=== PATIENT | male | born 1955 ===

== ENCOUNTER 2018-07-24 18:40 | Inpatient (IN) | payer MEDICAID ==
[2018-07-24] MEDS ORDERED: Dextrose 50% SYRINGE Inj (50 ml) IVP ONE (19:10)
[2018-07-24] MEDS ORDERED: Dextrose 50% SYRINGE Inj (50 ml) ONE (19:11)
[2018-07-24 19:54] LABS: BASO # 0.1 K/uL (0.0-0.2); BASO % 0.5 % (0.0-2.0); EOS % 0.1 % (0.0-4.0); HEMOGLOBIN 14.5 g/dL (12.0-18.0); LYMPH # 1.4 K/uL (1.0-4.3); LYMPH % 11.7 % (20.0-40.0); MEAN CELL VOLUME 93.9 fl (80.0-94.0); MEAN CORPUSCULAR HEMOGLOBIN 31.4 pg (27.0-31.0); MEAN CORPUSCULAR HGB CONC 33.5 g/dL (33.0-37.0); MEAN PLATELET VOLUME 9.1 fl (7.2-11.7); MONO # 0.8 K/uL (0.0-0.8); MONO % 6.7 % (0.0-10.0); NRBC % 0.1 % (0.0-0.0); RBC 4.62 Mil/uL (4.40-5.90); RED CELL DISTRIBUTION WIDTH 13.8 % (11.5-14.5); WHITE BLOOD COUNT 12.4 K/uL (4.8-10.8)
--- NOTE | 2018-07-24 19:57 | ED PDOC ---
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 On evaluation, patient with an accucheck of 38 and immediately started on d-50. Patient is easily arousable and denies any drinking or drugs today, but states last night he drank a lot of vodka. When told he still smells like alcohol and asked if he is certain he did not drink today, patient just shrugs his shoulders. When asked why he was at the laundry mat, he said "I don't know." Otherwise, he denies chest pain, headache, dizziness, numbness, and weakness. Patient is a poor historian due to his clinical condition. PMD: none provided Past Medical History Reviewed: Historical Data, Nursing Documentation, Vital Signs Vital Signs: Last Vital Signs Temp 98.1 F 07/24/18 18:45 Pulse 100 H 07/24/18 18:45 Resp 19 07/24/18 18:45 BP 134/84 07/24/18 18:45 Pulse Ox 100 07/24/18 18:45 - Medical History PMH: Arthritis, Back Problems, Gastritis, HTN, Schizophrenia Denies: Chronic Kidney Disease - Surgical History Surgical History: Back Surgery - Family History Family History: States: Unknown Family Hx - Social History Current smoker - smoking cessation education provided: Yes Alcohol: Other (frequency not indicated) Drugs: Denies - Allergies Allergies/Adverse Reactions: Allergies Allergy/AdvReac Type Severity Reaction Status Date / Time Penicillins Allergy RASH Verified 08/27/16 19:29 Review of Systems ROS Statement: Except As Marked, All Systems Reviewed And Found Negative Cardiovascular: Negative for: Chest Pain Neurological: Positive for: Other (possible loss of consciousness). Negative for: Weakness, Numbness, Headache, Dizziness Physical Exam - Reviewed Nursing Documentation Reviewed: Yes Vital Signs Reviewed: Yes - Physical Exam Appears: Positive for: No Acute Distress Head Exam: Positive for: ATRAUMATIC, NORMAL INSPECTION, NORMOCEPHALIC Skin: Positive for: Normal Color. Negative for: Rash (or lacerations or abrasions) Eye Exam: Positive for: EOMI. Negative for: PERRL (right lateral pupillary defect: rigt pupil does not react to light; left pupil constricted with light) Neck: Positive for: Normal, Painless ROM, Supple Cardiovascular/Chest: Positive for: Tachycardia Respiratory: Positive for: Normal Breath Sounds. Negative for: Respiratory Distress Gastrointestinal/Abdominal: Positive for: Normal Exam, Soft. Negative for: Tenderness Extremity: Positive for: Normal ROM (all extremities), Other (clubbing of fingernails) Neurologic/Psych: Positive for: Other (easily arousable) - Laboratory Results Result Diagrams: 07/24/18 19:00 07/24/18 19:00 - ECG O2 Sat by Pulse Oximetry: 100 (RA) Pulse Ox Interpretation: Normal Medical Decision Making Medical Decision Making: Time: 1899 Initial Impression: workup for altered mental status most likely due to drugs and alcohol; hypoglycemia Initial Plan: --Will repeat blood sugar 30 mins after d-50 administration --VBG --EKG --Alcohol serum --CMP --Urine drug screen --Magnesium and phosphorus --Trop I --CBC with differential --Accucheck --Dextrose 5%/ Lactated Ringers 1000ml IV --Dextrose 50% Inj 50ml IVP --Reassess 2133 Code sepsis activated secondary to elevated WBC, elevated lactate, and tachycardia. In addition, CXR shows pneumonia. Scribe Attestation: Documented by Leslie Tobin, acting as a scribe for Ara Alonzo MD. Provider Scribe Attestation: All medical record entries made by the Scribe were at my direction and personally dictated by me. I have reviewed the chart and agree that the record accurately reflects my personal performance of the history, physical exam, medical decision making, and the department course for this patient. I have also personally directed, reviewed, and agree with the discharge instructions and disposition. Disposition - Clinical Impression Clinical Impression: Alcohol abuse with intoxication, Pneumonia, Hypoglycemia - Disposition
[2018-07-24 20:02] LABS: BLOOD UREA NITROGEN 20 mg/dl (9-20); CALCIUM 8.8 mg/dL (8.4-10.2); GFR NON-AFRICAN AMERICAN 56
[2018-07-24 20:08] LABS: ALB/GLOB RATIO 1.1 (1.0-2.1); ALBUMIN 4.3 g/dL (3.5-5.0); ALT/SGPT 61 U/L (21-72); AST/SGOT 115 U/L (17-59)
[2018-07-24] MEDS: Dextrose 5%/Lactated Ringer's 1,000 ML IV SCH (20:24)
[2018-07-24 21:31] LABS: VENOUS BLOOD GAS BASE EXCESS -5.7 mmol/L (0.0-2.0); VENOUS BLOOD GAS PCO2 48 mmHg (40-60); VENOUS BLOOD GAS PO2 21 mm/Hg (30-55); VENOUS BLOOD PH 7.26 (7.32-7.43)
[2018-07-24] MEDS ORDERED: Sodium Chloride 0.9% 1,000 ML IV STA ×2 (21:34→21:36)
[2018-07-24] MEDS ORDERED: Azithromycin 500 MG in Sodium Chloride 0.9% 250 ML IVPB STA (21:34)
[2018-07-24] MEDS ORDERED: cefTRIAXone 1,000 MG in PED IV SYRINGE 1 SYR IVPB STA (21:35)
[2018-07-24] MEDS ORDERED: Azithromycin 500 MG IV IVPB ONE (21:45)
[2018-07-24] MEDS ORDERED: cefTRIAXone (Rocephin) 1 gm Inj ONE (21:46)
[2018-07-24] MEDS ORDERED: Sodium Chloride 3% for Inhalation 4 ML VIAL.NEB IH PRN (22:43)
[2018-07-24] MEDS ORDERED: Albuterol-Ipratrop 3 mg / 0.5 (3 ml) UD INH PRN (22:55)
[2018-07-24] MEDS ORDERED: Thiamine 100 mg/ml Inj IM ONE (22:55)
--- NOTE | 2018-07-24 23:23 | CP.PCM.HP ---
History of Present Illness - History of Present Illness History of Present Illness: 63 y/o male w/ pmhx of HTN and alcohol abuse who was brought in to [facility] ER by EMS after being found unconscious. Patient admits to alcohol consumption for the past two days; he is unsure how much he drank. He denies chest pain, nausea, vomiting, dizziness, pain. He reports heavy drinking once a month for years. PMD: Dr. Don Sosa Pmhx: HTN, right eye glaucoma FamHx: Mother has asthma; father has prostate cancer Social hx: etoh abuse for years, 1 ppd smoker x 48 years, marijuana once a month Surghx: Lumbar spine surgery and eye surgery Allergies: Penicillin Code Status: full code Next of Kin: Otf Rojas, friend/roommate; [phone] Present on Admission - Present on Admission Any Indicators Present on Admission: No History of DVT/PE: No History of Uncontrolled Diabetes: No Urinary Catheter: No Decubitus Ulcer Present: No Review of Systems - Review of Systems Systems not reviewed;Unavailable: Intoxicated - EENT Ears: absent: Dizziness - Cardiovascular Cardiovascular: absent: Chest Pain - Respiratory Respiratory: Cough. absent: Hemoptysis - Gastrointestinal Gastrointestinal: absent: Abdominal Pain, Constipation, Diarrhea, Nausea, Vomiting - Genitourinary Genitourinary: absent: Dysuria - Neurological Neurological: absent: Tremor Past Patient History - Infectious Disease Hx of Infectious Diseases: None - Past Medical History & Family History Past Medical History?: Yes Past Family History: Reviewed and not pertinent - Past Social History Smoking Status: Heavy Smoker > 10 Cigarettes Daily Alcohol: Other (frequency not indicated) Drugs: Denies, Cannabis Home Situation {Lives}: Friends - CARDIAC Hx Hypertension: Yes - PULMONARY Hx Respiratory Disorders: No - NEUROLOGICAL Hx Neurological Disorder: No - HEENT Hx Glaucoma: Yes - RENAL Hx Chronic Kidney Disease: No - ENDOCRINE/METABOLIC Hx Endocrine Disorders: No - HEMATOLOGICAL/ONCOLOGICAL Hx Hepatitis A: Yes (treated) Hx Hepatitis B: Yes (treated) Hx Hepatitis C: Yes - INTEGUMENTARY Hx Dermatological Problems: No - MUSCULOSKELETAL/RHEUMATOLOGICAL Hx Arthritis: Yes - GASTROINTESTINAL Hx Gastritis: Yes - GENITOURINARY/GYNECOLOGICAL Hx Genitourinary Disorders: No - PSYCHIATRIC Hx Schizophrenia: Yes - SURGICAL HISTORY Other/Comment: spine surgery 4 years ago - ANESTHESIA Hx Anesthesia: Yes Meds Allergies/Adverse Reactions: Allergies Allergy/AdvReac Type Severity Reaction Status Date / Time Penicillins Allergy RASH Verified 08/27/16 19:29 Physical Exam - Constitutional Appears: Non-toxic - Head Exam Head Exam: ATRAUMATIC - Eye Exam Eye Exam: absent: Nystagmus, Scleral icterus Pupil Exam: absent: Miosis - ENT Exam ENT Exam: Mucous Membranes Moist - Respiratory Exam Respiratory Exam: Clear to Auscultation Bilateral, NORMAL BREATHING PATTERN - Cardiovascular Exam Cardiovascular Exam: REGULAR RHYTHM, +S1, +S2 - GI/Abdominal Exam GI & Abdominal Exam: Normal Bowel Sounds, Soft. absent: Tenderness - Extremities Exam Extremities exam: Negative for: calf tenderness, pedal edema - Back Exam Back exam: absent: tenderness - Neurological Exam Neurological exam: Alert, Oriented x3 - Skin Skin Exam: Dry, Intact, Warm Results - Vital Signs Recent Vital Signs: Last Vital Signs Temp 98.3 F 07/24/18 22:59 Pulse 99 H 07/24/18 22:59 Resp 19 07/24/18 22:59 BP 130/79 07/24/18 22:59 Pulse Ox 96 07/24/18 22:59 - Labs Result Diagrams: 07/24/18 19:00 07/24/18 19:00 Labs: Laboratory Results - last 24 hr 07/24/18 07/24/18 07/24/18 19:00 19:00 19:08 WBC 12.4 H D RBC 4.62 Hgb 14.5 Hct 43.4 MCV 93.9 D MCH 31.4 H MCHC 33.5 RDW 13.8 Plt Count 209 MPV 9.1 Neut % (Auto) 81.0 H Lymph % (Auto) 11.7 L Patrick % (Auto) 6.7 Eos % (Auto) 0.1 Baso % (Auto) 0.5 Neut # (Auto) 10.0 H Lymph # (Auto) 1.4 Patrick # (Auto) 0.8 Eos # (Auto) 0.0 Baso # (Auto) 0.1 pO2 VBG pH VBG pCO2 VBG HCO3 VBG Total CO2 VBG O2 Sat (Calc) VBG Base Excess VBG Potassium Glucose Lactate FiO2 Blood Gas Comments Crit Value Called To Crit Value Called By Crit Value Read Back Blood Gas Notified Time Sodium 142 Potassium 4.2 Chloride 106 Carbon Dioxide 19 L Anion Gap 21 H BUN 20 Creatinine 1.3 Est GFR ( Amer) > 60 Est GFR (Non-Af Amer) 56 POC Glucose (mg/dL) 37 L* Random Glucose 41 L Calcium 8.8 Phosphorus 4.7 H Magnesium 1.9 Total Bilirubin 0.8 AST 115 H ALT 61 Alkaline Phosphatase 58 Troponin I < 0.0120 Total Protein 8.0 Albumin 4.3 Globulin 3.7 Albumin/Globulin Ratio 1.1 Venous Blood Potassium Alcohol, Quantitative 183 H 07/24/18 07/24/18 19:09 21:25 WBC RBC Hgb Hct MCV MCH MCHC RDW Plt Count MPV Neut % (Auto) Lymph % (Auto) Patrick % (Auto) Eos % (Auto) Baso % (Auto) Neut # (Auto) Lymph # (Auto) Patrick # (Auto) Eos # (Auto) Baso # (Auto) pO2 21 L VBG pH 7.26 L VBG pCO2 48 VBG HCO3 18.5 VBG Total CO2 23.0 VBG O2 Sat (Calc) 41.7 VBG Base Excess -5.7 L VBG Potassium 3.5 L Glucose 240 H Lactate 7.9 H* FiO2 21.0 Blood Gas Comments Lac=7.9 Crit Value Called To dana Alonzo Crit Value Called By 22 Crit Value Read Back Y Blood Gas Notified Time 2130 Sodium 139.0 Potassium Chloride 100.0 Carbon Dioxide Anion Gap BUN Creatinine Est GFR ( Amer) Est GFR (Non-Af Amer) POC Glucose (mg/dL) 34 L* Random Glucose Calcium Phosphorus Magnesium Total Bilirubin AST ALT Alkaline Phosphatase Troponin I Total Protein Albumin Globulin Albumin/Globulin Ratio Venous Blood Potassium 3.5 L Alcohol, Quantitative Assessment & Plan - Assessment and Plan (Free Text) Assessment: 63 y/o male w/ pmhx of HTN and alcohol abuse who is admitted for sepsis, pneumonia, and hypoglycemia management. Sepsis Admit to telemetry WBC 12.4, Lactate 7.9, HR 100 on admission. Afebrile. Likely secondary to pneumonia Cont. IV fluid hydration with D5/LR 125mL/hr Ceftriaxone 1gm IV QD and Azithromycin 500mg IV QD Blood culture pending Follow repeat lactic acid level in AM Pneumonia Community acquired vs. aspiration CXR official report pending Ceftriaxone 1gm IV QD and Azithromycin 500mg IV QD Duoneb 3 mL Q6H PRN, O2 NC 2L PRN Follow legionella urine ag, mycoplasma igg/igm, influenza A/B Sputum culture ordered High Anion Gap Metabolic Acidosis Likely secondary to lactic acidosis (7.9) secondary to sepsis Anion gap 21 on admission, Bicarb 19 Cont. IV fluid hydration and abx as above Hypoglycemia Blood glucose = 34 on admission S/p Dextrose 50 mL IVP once in ER Cont. IV fluid hydration with D5/LR 125mL/hr Will monitor glucose levels Q4H Alcohol Abuse Acute on Chronic Alcohol level 183 07/24/2018 AST> ALT, 115/61 CIWA protocol Ativan 1 gm IV Q6 PRN for agitation Neurocheck Q8H B12, Folate, Thiamine daily Hx of HTN Stable, controlled Will monitor BP Diet: Regular DVT prophylaxis: Lovenox 40mg SC QD Code Status: Full Code
[2018-07-24] MEDS ORDERED: Thiamine 100 mg/ml Inj ONE (23:35)
[2018-07-24 23:51] LABS: BARBITURATES, UR NEGATIVE (NEGATIVE); BENZODIAZEPINES, UR NEGATIVE (NEGATIVE); OPIATES, UR NEGATIVE (NEGATIVE); PHENCYCLIDINE, UR NEGATIVE (NEGATIVE)
[2018-07-25] MEDS: Dextrose 5%/Lactated Ringer's 1,000 ML IV SCH ×3 (00:10→15:38)
[2018-07-25 05:22] LABS: BASO # 0.1 K/uL (0.0-0.2); BASO % 0.8 % (0.0-2.0); EOS % 0.6 % (0.0-4.0); HEMOGLOBIN 13.3 g/dL (12.0-18.0); LYMPH # 1.9 K/uL (1.0-4.3); LYMPH % 22.2 % (20.0-40.0); MEAN CELL VOLUME 92.1 fl (80.0-94.0); MEAN CORPUSCULAR HEMOGLOBIN 31.4 pg (27.0-31.0); MEAN CORPUSCULAR HGB CONC 34.1 g/dL (33.0-37.0); MEAN PLATELET VOLUME 8.4 fl (7.2-11.7); MONO # 1.1 K/uL (0.0-0.8); MONO % 12.5 % (0.0-10.0); NEUT # 5.5 K/uL (1.8-7.0); NEUT % 63.9 % (50.0-75.0); NRBC % 0.1 % (0.0-0.0); RBC 4.23 Mil/uL (4.40-5.90); RED CELL DISTRIBUTION WIDTH 13.6 % (11.5-14.5); WHITE BLOOD COUNT 8.5 K/uL (4.8-10.8)
[2018-07-25 05:31] LABS: PROTHROMBIN TIME 11.1 Seconds (9.8-13.1)
[2018-07-25 05:34] LABS: PARTIAL THROMBOPLASTIN TIME 28.5 Seconds (25.6-37.1)
[2018-07-25 05:46] LABS: ALBUMIN 3.3 g/dL (3.5-5.0); ALT/SGPT 61 U/L (21-72); AST/SGOT 94 U/L (17-59); BLOOD UREA NITROGEN 21 mg/dl (9-20); CALCIUM 8.2 mg/dL (8.4-10.2); GFR NON-AFRICAN AMERICAN > 60
[2018-07-25] MEDS ORDERED: Dextrose 50% SYRINGE Inj (50 ml) IVP ONE (08:00)
[2018-07-25] MEDS: Azithromycin 500 MG in Sodium Chloride 0.9% 250 ML IVPB SCH (09:22)
--- NOTE | 2018-07-25 10:14 | CARD ---
APPROVED REPORT Date of service: 07/24/2018 EKG Measurement Heart [id number] <Conclusion> Normal sinus rhythm Possible Left atrial enlargement Nonspecific ST abnormality Prolonged QT Abnormal ECG
--- NOTE | 2018-07-25 11:05 | RAD ---
Date of service: 07/24/2018 HISTORY: possible admission COMPARISON: 08/27/2016. FINDINGS: LUNGS: No active pulmonary disease. PLEURA: No significant pleural effusion identified, no pneumothorax apparent. CARDIOVASCULAR: No atherosclerotic calcification present Normal. OSSEOUS STRUCTURES: No significant abnormalities. VISUALIZED UPPER ABDOMEN: Normal. OTHER FINDINGS: None. IMPRESSION: No active disease.
--- NOTE | 2018-07-25 12:33 | CP.PCM.PN ---
<Liam Montenegro - Last Filed: 07/25/18 12:44> Subjective - Date & Time of Evaluation Date of Evaluation: 07/25/18 Time of Evaluation: 09:30 - Subjective Subjective: Patient seen and evaluated at bedside in AM. Patient awake, alert but appears weak. He reports feeling better from yesterday. Cough present with light yellowish sputum. Patient also reports generalized pain w/o nausea, vomiting, diarrhea. Afebrile, tolerated diet well this morning. Denies any headache, chest pain, shortness of breath, vision changes. Objective - Vital Signs/Intake and Output Vital Signs (last 24 hours): Temp Pulse Resp BP Pulse Ox 98.1 F 87 20 129/73 96 07/25/18 12:07 07/25/18 12:07 07/25/18 12:07 07/25/18 12:07 07/25/18 12:07 - Medications Medications: Current Medications Albuterol/Ipratropium (Duoneb 3 Mg/0.5 Mg (3 Ml) Ud) 3 ml INH RQ6 PRN PRN Reason: Shortness of Breath Cyanocobalamin (Vitamin B12 1000 Mcg Tab) 1,000 mcg PO DAILY [facility] Enoxaparin Sodium (Lovenox) 40 mg SC DAILY [facility]; Protocol Folic Acid (Folic Acid) 1 mg PO DAILY [facility] Dextrose/Lactated Ringer's (Dextrose 5%/Lactated Ringer's) 1,000 mls @ 500 mls/hr IV .Q2H [facility] Stop: 07/25/18 19:19 Last Admin: 07/24/18 20:24 Dose: 500 mls/hr Dextrose/Lactated Ringer's (Dextrose 5%/Lactated Ringer's) 1,000 mls @ 125 mls/hr IV .Q8H [facility] Stop: 07/25/18 22:59 Last Admin: 07/25/18 09:24 Dose: 125 mls/hr Azithromycin 500 mg/ Sodium (Chloride) 250 mls @ 250 mls/hr IVPB DAILY [facility]; Protocol Last Admin: 07/25/18 09:22 Dose: 250 mls/hr Ceftriaxone Sodium 1 gm/ (Sodium Chloride) 100 mls @ 100 mls/hr IVPB DAILY [facility]; Protocol Last Admin: 07/25/18 09:22 Dose: 100 mls/hr Lorazepam (Ativan) 1 mg IM Q6 PRN PRN Reason: Agitation Multivitamins/Minerals (Therapeutic-M Tab) 1 tab PO DAILY [facility] Thiamine HCl (Vitamin B1 Tab) 100 mg PO DAILY [facility] - Labs Labs: 07/25/18 05:17 07/25/18 05:17 PT 11.1 Seconds (9.8-13.1) 07/25/18 05:17 INR 1.0 07/25/18 05:17 APTT 28.5 Seconds (25.6-37.1) 07/25/18 05:17 - Constitutional Appears: No Acute Distress - Head Exam Head Exam: ATRAUMATIC, NORMOCEPHALIC - ENT Exam ENT Exam: Mucous Membranes Moist - Neck Exam Neck Exam: Full ROM. absent: Tenderness - Respiratory Exam Respiratory Exam: Clear to Ausculation Bilateral, Rhonchi. absent: Decreased Breath Sounds, Rales, Wheezes, Respiratory Distress - Cardiovascular Exam Cardiovascular Exam: REGULAR RHYTHM, +S1, +S2. absent: Murmur - GI/Abdominal Exam GI & Abdominal Exam: Soft, Tenderness, Normal Bowel Sounds. absent: Distended - Extremities Exam Extremities Exam: absent: Calf Tenderness, Pedal Edema, Tenderness - Back Exam Back Exam: absent: CVA tenderness (L), CVA tenderness (R) - Neurological Exam Neurological Exam: Alert, Awake, Oriented x3 - Psychiatric Exam Psychiatric exam: Normal Affect, Normal Mood - Skin Skin Exam: Dry, Intact, Normal Color, Warm Assessment and Plan - Assessment and Plan (Free Text) Assessment: 63 y/o male w/ pmhx of HTN and alcohol abuse who is admitted for sepsis, pneumonia, and hypoglycemia management. Plan: Sepsis -Likely secondary to pneumonia -WBC 12.4, Lactate 7.9, HR 100 on admission. Currently Afebrile. -Cont. IV fluid hydration with D5/LR 125mL/hr -Ceftriaxone 1gm IV QD and Azithromycin 500mg IV QD -F/U Blood culture Pneumonia -Community acquired vs. aspiration, Neg Legionella -CXR: No acute infiltrates -C/W Ceftriaxone 1gm IV QD and Azithromycin 500mg IV QD -Duoneb 3 mL Q6H PRN, O2 NC 2L PRN -Follow mycoplasma igg/igm, influenza A/B, Sputum Cx High Anion Gap Metabolic Acidosis -Likely secondary to lactic acidosis (7.9) secondary to sepsis -Anion gap 21 on admission, Bicarb 19 -Cont. IV fluid hydration and abx as above Hypoglycemia -Blood glucose = 34 on admission -S/p Dextrose 50 mL IVP in ED -Cont. IV fluid hydration with D5/LR 125mL/hr -D50% 50 ml once today -Will monitor glucose levels Q4H Alcohol Abuse -Acute on Chronic -Alcohol level 183 07/24/2018 -AST> ALT, 115/61 -CIWA protocol -Ativan 1 gm IV Q6 PRN for agitation -Neurocheck Q8H -B12, Folate, Thiamine daily Hx of HTN -Stable, controlled -Will monitor BP Diet: -Regular DVT prophylaxis: -Lovenox 40mg SC QD Code Status: -Full Code <Radha Gonzales - Last Filed: 07/25/18 15:35> Objective - Vital Signs/Intake and Output Vital Signs (last 24 hours): Temp Pulse Resp BP Pulse Ox 98.1 F 87 20 129/73 96 07/25/18 12:07 07/25/18 12:07 07/25/18 12:07 07/25/18 12:07 07/25/18 12:07 - Medications Medications: Current Medications Albuterol/Ipratropium (Duoneb 3 Mg/0.5 Mg (3 Ml) Ud) 3 ml INH RQ6 PRN PRN Reason: Shortness of Breath Cyanocobalamin (Vitamin B12 1000 Mcg Tab) 1,000 mcg PO DAILY [facility] Last Admin: 07/25/18 15:28 Dose: 1,000 mcg Enoxaparin Sodium (Lovenox) 40 mg SC DAILY [facility]; Protocol Last Admin: 07/25/18 15:28 Dose: 40 mg Folic Acid (Folic Acid) 1 mg PO DAILY [facility] Last Admin: 07/25/18 15:27 Dose: 1 mg Dextrose/Lactated Ringer's (Dextrose 5%/Lactated Ringer's) 1,000 mls @ 500 mls/hr IV .Q2H [facility] Stop: 07/25/18 19:19 Last Admin: 07/24/18 20:24 Dose: 500 mls/hr Dextrose/Lactated Ringer's (Dextrose 5%/Lactated Ringer's) 1,000 mls @ 125 mls/hr IV .Q8H [facility] Stop: 07/25/18 22:59 Last Admin: 07/25/18 09:24 Dose: 125 mls/hr Azithromycin 500 mg/ Sodium (Chloride) 250 mls @ 250 mls/hr IVPB DAILY [facility]; Protocol Last Admin: 07/25/18 09:22 Dose: 250 mls/hr Ceftriaxone Sodium 1 gm/ (Sodium Chloride) 100 mls @ 100 mls/hr IVPB DAILY [facility]; Protocol Last Admin: 07/25/18 09:22 Dose: 100 mls/hr Lorazepam (Ativan) 1 mg IM Q6 PRN PRN Reason: Agitation Multivitamins/Minerals (Therapeutic-M Tab) 1 tab PO DAILY [facility] Thiamine HCl (Vitamin B1 Tab) 100 mg PO DAILY [facility] Last Admin: 07/25/18 15:27 Dose: 100 mg - Labs Labs: 07/25/18 05:17 07/25/18 05:17 PT 11.1 Seconds (9.8-13.1) 07/25/18 05:17 INR 1.0 07/25/18 05:17 APTT 28.5 Seconds (25.6-37.1) 07/25/18 05:17 Attending/Attestation - Attestation I have personally seen and examined this patient.: Yes I have fully participated in the care of the patient.: Yes I have reviewed all pertinent clinical information, including history, physical exam and plan: Yes
[2018-07-25] MEDS: Enoxaparin 40 mg Syringe SC SCH (15:28)
[2018-07-25] MEDS: Multivitamin With Minerals Tab PO SCH (17:39)
[2018-07-26] MEDS: Enoxaparin 40 mg Syringe SC SCH (09:00)
[2018-07-26] MEDS: Multivitamin With Minerals Tab PO SCH (09:00)
[2018-07-26] MEDS: Azithromycin 500 MG in Sodium Chloride 0.9% 250 ML IVPB SCH (09:01)
--- NOTE | 2018-07-26 12:03 | CP.PCM.PN ---
<Katie Mims - Last Filed: 07/26/18 12:30> Subjective - Date & Time of Evaluation Date of Evaluation: 07/26/18 Time of Evaluation: 12:03 - Subjective Subjective: 63-year-old male seen bedside sitting up in bed comfortably eating breakfast. Patient awake, alert and ambulating to the restroom without difficulties. Cough present but denies any sputum since yesterday. He reports improvement in overall symptoms but admits to feeling fatigued and two episodes of new-onset loose- stools, dark in color. Denies blood in stool, pain with bowel movement, nausea, vomiting, dizziness, palpitations, chest pain and change in vision. Objective - Vital Signs/Intake and Output Vital Signs (last 24 hours): Temp Pulse Resp BP Pulse Ox 97.9 F 72 18 127/79 97 07/26/18 12:03 07/26/18 12:03 07/26/18 12:03 07/26/18 12:03 07/26/18 12:03 - Medications Medications: Current Medications Albuterol/Ipratropium (Duoneb 3 Mg/0.5 Mg (3 Ml) Ud) 3 ml INH RQ6 PRN PRN Reason: Shortness of Breath Chlordiazepoxide (Librium) 10 mg PO Q6 [facility] Last Admin: 07/26/18 09:03 Dose: 10 mg Cyanocobalamin (Vitamin B12 1000 Mcg Tab) 1,000 mcg PO DAILY [facility] Last Admin: 07/26/18 09:00 Dose: 1,000 mcg Enoxaparin Sodium (Lovenox) 40 mg SC DAILY [facility]; Protocol Last Admin: 07/26/18 09:00 Dose: 40 mg Folic Acid (Folic Acid) 1 mg PO DAILY [facility] Last Admin: 07/26/18 09:00 Dose: 1 mg Azithromycin 500 mg/ Sodium (Chloride) 250 mls @ 250 mls/hr IVPB DAILY [facility]; Protocol Last Admin: 07/26/18 09:01 Dose: 250 mls/hr Ceftriaxone Sodium 1 gm/ (Sodium Chloride) 100 mls @ 100 mls/hr IVPB DAILY [facility]; Protocol Last Admin: 07/26/18 09:00 Dose: 100 mls/hr Lorazepam (Ativan) 1 mg IM Q6 PRN PRN Reason: Agitation Multivitamins/Minerals (Therapeutic-M Tab) 1 tab PO DAILY [facility] Last Admin: 07/26/18 09:00 Dose: 1 tab Thiamine HCl (Vitamin B1 Tab) 100 mg PO DAILY [facility] Last Admin: 07/26/18 09:00 Dose: 100 mg - Labs Labs: 07/25/18 05:17 07/25/18 05:17 PT 11.1 Seconds (9.8-13.1) 07/25/18 05:17 INR 1.0 07/25/18 05:17 APTT 28.5 Seconds (25.6-37.1) 07/25/18 05:17 - Constitutional Appears: Non-toxic, No Acute Distress - Head Exam Head Exam: NORMAL INSPECTION - Eye Exam Eye Exam: Normal appearance - ENT Exam ENT Exam: Mucous Membranes Moist - Respiratory Exam Respiratory Exam: Wheezes, NORMAL BREATHING PATTERN - Cardiovascular Exam Cardiovascular Exam: REGULAR RHYTHM, +S1, +S2 - GI/Abdominal Exam GI & Abdominal Exam: Soft, Normal Bowel Sounds. absent: Tenderness - Neurological Exam Neurological Exam: Alert, Awake, Normal Gait, Oriented x3 - Psychiatric Exam Psychiatric exam: Normal Affect, Normal Mood - Skin Skin Exam: Dry, Intact, Normal Color, Warm Assessment and Plan - Assessment and Plan (Free Text) Assessment: 63 y/o male w/ pmhx of HTN and alcohol abuse who is admitted for sepsis, pneumonia, and hypoglycemia management. Plan: Sepsis - Likely secondary to pneumonia - Currently Afebrile - WBC 8.5 (07/25) from 12.4 (07/24) - HR range overnight 67-93, 100 on admission - Lactate 7.9 on admission - Cont. IV fluid hydration with D5/LR 125mL/hr - Ceftriaxone 1gm IV QD and Azithromycin 500mg IV QD - Blood culture (07/24): no growth at 24 hrs Pneumonia - Community acquired vs. aspiration - CXR: No acute infiltrates - C/W Ceftriaxone 1gm IV QD and Azithromycin 500mg IV QD - Duoneb 3 mL Q6H PRN, O2 NC 2L PRN - Follow mycoplasma IgG/IgM, influenza A/B - Sputum Cx (07/24) pending - Legionella (07/24) negative High Anion Gap Metabolic Acidosis - Likely secondary to lactic acidosis (7.9) secondary to sepsis - Anion gap 21 on admission, Bicarb 19 - Cont. IV fluid hydration and abx as above Hypoglycemia - Blood glucose = 34 on admission - S/p Dextrose 50 mL IVP in ED - Cont. IV fluid hydration with D5/LR 125mL/hr - D50% 50 ml once today - Will monitor glucose levels Q4H (range overnight 85-164) Alcohol Abuse - Acute on Chronic - Alcohol level 183 07/24/2018 - AST> ALT, 94/61 (07/25) from 115/61 (07/24) - [facility] protocol - Ativan 1 gm IV Q6 PRN for agitation - Neurocheck Q8H - B12, Folate, Thiamine daily - [place] 10mg Q6H Hx of HTN - Stable on admission - Overnight BP range 154-162/90-104 - Likely secondary to alcohol withdrawal, [place] added - Will monitor BP Diet: - Regular DVT prophylaxis: - Lovenox 40mg SC QD Code Status: - Full Code <Radha Gonzales - Last Filed: 07/26/18 15:03> Objective - Vital Signs/Intake and Output Vital Signs (last 24 hours): Temp Pulse Resp BP Pulse Ox 97.9 F 72 18 127/79 97 07/26/18 12:03 07/26/18 12:03 07/26/18 12:03 07/26/18 12:03 07/26/18 12:03 - Medications Medications: Current Medications Albuterol/Ipratropium (Duoneb 3 Mg/0.5 Mg (3 Ml) Ud) 3 ml INH RQ6 PRN PRN Reason: Shortness of Breath Chlordiazepoxide (Librium) 10 mg PO Q6 [facility] Last Admin: 07/26/18 09:03 Dose: 10 mg Cyanocobalamin (Vitamin B12 1000 Mcg Tab) 1,000 mcg PO DAILY [facility] Last Admin: 07/26/18 09:00 Dose: 1,000 mcg Enoxaparin Sodium (Lovenox) 40 mg SC DAILY [facility]; Protocol Last Admin: 07/26/18 09:00 Dose: 40 mg Folic Acid (Folic Acid) 1 mg PO DAILY [facility] Last Admin: 07/26/18 09:00 Dose: 1 mg Azithromycin 500 mg/ Sodium (Chloride) 250 mls @ 250 mls/hr IVPB DAILY [facility]; Pro tocol Last Admin: 07/26/18 09:01 Dose: 250 mls/hr Ceftriaxone Sodium 1 gm/ (Sodium Chloride) 100 mls @ 100 mls/hr IVPB DAILY [facility]; Protocol Last Admin: 07/26/18 09:00 Dose: 100 mls/hr Lorazepam (Ativan) 1 mg IM Q6 PRN PRN Reason: Agitation Multivitamins/Minerals (Therapeutic-M Tab) 1 tab PO DAILY [facility] Last Admin: 07/26/18 09:00 Dose: 1 tab Thiamine HCl (Vitamin B1 Tab) 100 mg PO DAILY [facility] Last Admin: 07/26/18 09:00 Dose: 100 mg - Labs Labs: 07/25/18 05:17 07/25/18 05:17 PT 11.1 Seconds (9.8-13.1) 07/25/18 05:17 INR 1.0 07/25/18 05:17 APTT 28.5 Seconds (25.6-37.1) 07/25/18 05:17 Attending/Attestation - Attestation I have personally seen and examined this patient.: Yes I have fully participated in the care of the patient.: Yes I have reviewed all pertinent clinical information, including history, physical exam and plan: Yes Notes (Text): Hypoglycemia likely due to Alcohol, resolved - accucheck ETOH Withdrawal - diarrhea, BP elevated , sl tachy which improved with Librium ? Sepsis due to Pneumonia - lactic acidosis may be due to ETOH -rpt CXR - pt has some rhonchi and cough but no fever nor leukocytosis
--- NOTE | 2018-07-26 17:48 | RAD ---
Date of service: 07/26/2018 HISTORY: r/p Pneumonia COMPARISON: Comparison made with chest radiograph 07/24/2018. TECHNIQUE: Chest PA and lateral FINDINGS: LUNGS: Mild bibasilar atelectasis PLEURA: No significant pleural effusion identified. No pneumothorax apparent. CARDIOVASCULAR: Aorta slightly ectatic and uncoiled. No significant aortic atherosclerotic calcification present. Normal cardiac size. No pulmonary vascular congestion. OSSEOUS STRUCTURES: No significant abnormalities. VISUALIZED UPPER ABDOMEN: Normal. OTHER FINDINGS: None. IMPRESSION: Mild bibasilar atelectasis
[2018-07-27 06:00] LABS: BASO % 0.7 % (0.0-2.0); EOS # 0.1 K/uL (0.0-0.7); EOS % 3.7 % (0.0-4.0); HEMOGLOBIN 15.3 g/dL (12.0-18.0); LYMPH # 1.7 K/uL (1.0-4.3); LYMPH % 44.1 % (20.0-40.0); MEAN CELL VOLUME 91.9 fl (80.0-94.0); MEAN CORPUSCULAR HGB CONC 33.8 g/dL (33.0-37.0); MEAN PLATELET VOLUME 9.1 fl (7.2-11.7); MONO # 0.5 K/uL (0.0-0.8); MONO % 12.7 % (0.0-10.0); NEUT # 1.5 K/uL (1.8-7.0); NEUT % 38.8 % (50.0-75.0); NRBC % 0.2 % (0.0-0.0); RBC 4.94 Mil/uL (4.40-5.90); RED CELL DISTRIBUTION WIDTH 13.3 % (11.5-14.5); WHITE BLOOD COUNT 3.9 K/uL (4.8-10.8)
[2018-07-27 06:30] LABS: BLOOD UREA NITROGEN 15 mg/dl (9-20); CALCIUM 9.9 mg/dL (8.4-10.2); GFR NON-AFRICAN AMERICAN > 60
[2018-07-27 08:05] VITALS: BP 120/79; PULSE 68; RESP 18; TEMP 98.4; O2SAT 95
[2018-07-27] MEDS: Azithromycin 500 MG in Sodium Chloride 0.9% 250 ML IVPB SCH (09:14)
[2018-07-27] MEDS: Multivitamin With Minerals Tab PO SCH (09:16)
[2018-07-27] MEDS: Enoxaparin 40 mg Syringe SC SCH (09:17)
--- NOTE | 2018-07-27 10:15 | CP.PCM.DIS ---
<Katie Mims - Last Filed: 07/27/18 15:38> Provider - Provider Date of Admission: 07/24/18 22:00 Attending physician: Flip West MD Time Spent in preparation of Discharge (in minutes): 25 Diagnosis - Discharge Diagnosis (1) Alcohol abuse with intoxication Status: Acute (2) Lactic acid acidosis Status: Acute (3) Hypoglycemia Status: Acute Hospital Course - Lab Results Lab Results: Micro Results 07/24/18 21:50 Blood Blood Culture - Preliminary NO GROWTH AFTER 48 HOURS 07/24/18 15:26 Sputum Gram Stain - Final Most Recent Lab Values WBC 3.9 K/uL (4.8-10.8) L D 07/27/18 04:10 RBC 4.94 Mil/uL (4.40-5.90) 07/27/18 04:10 Hgb 15.3 g/dL (12.0-18.0) D 07/27/18 04:10 Hct 45.4 % (35.0-51.0) 07/27/18 04:10 MCV 91.9 fl (80.0-94.0) 07/27/18 04:10 MCH 31.0 pg (27.0-31.0) 07/27/18 04:10 MCHC 33.8 g/dL (33.0-37.0) 07/27/18 04:10 RDW 13.3 % (11.5-14.5) 07/27/18 04:10 Plt Count 160 K/uL (130-400) 07/27/18 04:10 MPV 9.1 fl (7.2-11.7) 07/27/18 04:10 Neut % (Auto) 38.8 % (50.0-75.0) L 07/27/18 04:10 Lymph % (Auto) 44.1 % (20.0-40.0) H 07/27/18 04:10 [place] % (Auto) 12.7 % (0.0-10.0) H 07/27/18 04:10 Eos % (Auto) 3.7 % (0.0-4.0) 07/27/18 04:10 Baso % (Auto) 0.7 % (0.0-2.0) 07/27/18 04:10 Neut # (Auto) 1.5 K/uL (1.8-7.0) L 07/27/18 04:10 Lymph # (Auto) 1.7 K/uL (1.0-4.3) 07/27/18 04:10 [place] # (Auto) 0.5 K/uL (0.0-0.8) 07/27/18 04:10 Eos # (Auto) 0.1 K/uL (0.0-0.7) 07/27/18 04:10 Baso # (Auto) 0.0 K/uL (0.0-0.2) 07/27/18 04:10 PT 11.1 Seconds (9.8-13.1) 07/25/18 05:17 INR 1.0 07/25/18 05:17 APTT 28.5 Seconds (25.6-37.1) 07/25/18 05:17 pO2 21 mm/Hg (30-55) L 07/24/18 21:25 VBG pH 7.26 (7.32-7.43) L 07/24/18 21:25 VBG pCO2 48 mmHg (40-60) 07/24/18 21:25 VBG HCO3 18.5 mmol/L 07/24/18 21:25 VBG Total CO2 23.0 mmol/L (22-28) 07/24/18 21:25 VBG O2 Sat (Calc) 41.7 % (40-65) 07/24/18 21:25 VBG Base Excess -5.7 mmol/L (0.0-2.0) L 07/24/18 21:25 VBG Potassium 3.5 mmol/L (3.6-5.2) L 07/24/18 21:25 Sodium 139.0 mmol/L (132-148) 07/24/18 21:25 Chloride 100.0 mmol/L (98-107) 07/24/18 21:25 Glucose 240 mg/dL (75-110) H 07/24/18 21:25 Lactate 7.9 mmol/L (0.7-2.1) H* 07/24/18 21:25 FiO2 21.0 % 07/24/18 21:25 Blood Gas Comments Lac=7.9 07/24/18 21:25 Crit Value Called To dana Alonzo 07/24/18 21:25 Crit Value Called By 22 07/24/18 21:25 Crit Value Read Back Y 07/24/18 21:25 Blood Gas Notified Time 213007/24/18 21:25 Sodium 138 mmol/l (132-148) 07/27/18 04:10 Potassium 4.0 MMOL/L (3.6-5.0) 07/27/18 04:10 Chloride 101 mmol/L (98-107) 07/27/18 04:10 Carbon Dioxide 28 mmol/L (22-30) 07/27/18 04:10 Anion Gap 13 (10-20) 07/27/18 04:10 BUN 15 mg/dl (9-20) 07/27/18 04:10 Creatinine 0.8 mg/dl (0.8-1.5) 07/27/18 04:10 Est GFR ( Amer) > 60 07/27/18 04:10 Est GFR (Non-Af Amer) > 60 07/27/18 04:10 POC Glucose (mg/dL) 122 mg/dL (65-110) H 07/27/18 06:39 Random Glucose 102 mg/dL (75-110) 07/27/18 04:10 Lactic Acid 0.8 MMOL/L (0.7-2.1) 07/25/18 05:17 Calcium 9.9 mg/dL (8.4-10.2) 07/27/18 04:10 Phosphorus 4.7 mg/dl (2.5-4.5) H 07/24/18 19:00 Magnesium 1.9 MG/DL (1.6-2.3) 07/24/18 19:00 Total Bilirubin 0.3 mg/dl (0.2-1.3) 07/25/18 05:17 AST 94 U/L (17-59) H 07/25/18 05:17 ALT 61 U/L (21-72) 07/25/18 05:17 Alkaline Phosphatase 41 U/L (38-126) 07/25/18 05:17 Troponin I < 0.0120 ng/mL (0.00-0.120) 07/24/18 19:00 Total Protein 6.5 G/DL (6.3-8.2) 07/25/18 05:17 Albumin 3.3 g/dL (3.5-5.0) L D 07/25/18 05:17 Globulin 3.2 gm/dL (2.2-3.9) 07/25/18 05:17 Albumin/Globulin Ratio 1.0 (1.0-2.1) 07/25/18 05:17 Venous Blood Potassium 3.5 mmol/L (3.6-5.2) L 07/24/18 21:25 Urine Opiates Screen Negative (NEGATIVE) 07/24/18 23:09 Urine Methadone Screen Negative (NEGATIVE) 07/24/18 23:09 Ur Barbiturates Screen Negative (NEGATIVE) 07/24/18 23:09 Ur Phencyclidine Scrn Negative (NEGATIVE) 07/24/18 23:09 Ur Amphetamines Screen Negative (NEGATIVE) 07/24/18 23:09 U Benzodiazepines Scrn Negative (NEGATIVE) 07/24/18 23:09 U Oth Cocaine Metabols Negative (NEGATIVE) 07/24/18 23:09 U Cannabinoids Screen Positive (NEGATIVE) H 07/24/18 23:09 Alcohol, Quantitative 183 mg/dl (0-10) H 07/24/18 19:00 Ur L.pneumophila Ag Negative (NEGATIVE) 07/24/18 23:55 - Hospital Course Hospital Course: 63 y/o male w/ pmhx of HTN and alcohol abuse who is admitted for sepsis, pneumonia, and hypoglycemia management. Sepsis secondary to pneumonia ruled out, discharge diagnosis acute alcohol intoxication and cough likely due to URI. CXR showed no acute infiltrates. Blood culture (07/24): no growth at 24 hrs. WBC 3.9 (07/27.), 8.5 (07/25), 12.4 (07/24). High anion gap metabolic acidosis likely due to lactic acidosis (7.9) secondary to alcohol intoxication. Cough likely secondary to URI, treated with Ceftriaxone 1gm IV QD and Azithromycin 500mg IV QD, Duoneb 3 mL Q6H PRN, O2 NC 2L PRN. Sputum Cx (07/24) gram neg konstantin, light growth, Legionella (07/24) negative. Hypoglycemia on admission (glucose 34) also likely due to alcohol intoxication, treated with Dextrose 50 mL IVP in ED, IV fluid hydration with D5/LR 125mL/hr, D50% 50 ml (x2: 07/24, 07/25). Glucose levels monitored Q4H (range overnight 71-122). On admission cannibinoids screen positive. Alcohol level 183 (07/24/2018). Alcohol abuse acute on chronic, AST> ALT, 94/61 (07/25); 115/61 (07/24). [facility] protocol followed, Ativan 1 gm IV Q6 PRN for agitation , neurocheck Q8H; B12, Folate, Thiamine daily. Librium 10mg Q6H added to resolve withdrawl HTN - discharged on librium taper dose. Smoking cessation counseling provided prior to discharge. Discharge Exam - Head Exam Head Exam: NORMAL INSPECTION - Eye Exam Eye Exam: Normal appearance - ENT Exam ENT Exam: Mucous Membranes Moist - Neck Exam Neck exam: Full Rom - Respiratory Exam Respiratory Exam: NORMAL BREATHING PATTERN, UNREMARKABLE. absent: Wheezes, Respiratory Distress - Cardiovascular Exam Cardiovascular Exam: REGULAR RHYTHM - GI/Abdominal Exam GI & Abdominal Exam: Soft, Unremarkable. absent: Tenderness - Extremities Exam Extremities exam: normal inspection - Neurological Exam Neurological exam: Alert, Normal Gait, Oriented x3 - Psychiatric Exam Psychiatric exam: Normal Affect, Normal Mood - Skin Skin Exam: Dry, Intact, Normal Color, Warm Discharge Plan - Discharge Medications Prescriptions: chlordiazePOXIDE [Librium] 10 mg PO ASDIR #10 cap - Follow Up Plan Condition: GOOD Disposition: HOME/ ROUTINE Instructions: Acute Bronchitis, Alcohol Withdrawal (DC), Alcohol Abuse and Alcoholism (DC) Additional Instructions: please follow up with on wednesday08/02/18 9:30am Referrals: Don Sosa [Family Provider] - <Radha Gonzales - Last Filed: 07/27/18 18:37> Provider - Provider Date of Admission: 07/24/18 22:00 Attending physician: Flip West MD Hospital Course - Lab Results Lab Results: Micro Results 07/24/18 15:26 Sputum Gram Stain - Final 07/24/18 15:26 Sputum Sputum Culture - Preliminary Gram Negative Konstantin 07/24/18 21:50 Blood Blood Culture - Preliminary NO GROWTH AFTER 48 HOURS Most Recent Lab Values WBC 3.9 K/uL (4.8-10.8) L D 07/27/18 04:10 RBC 4.94 Mil/uL (4.40-5.90) 07/27/18 04:10 Hgb 15.3 g/dL (12.0-18.0) D 07/27/18 04:10 Hct 45.4 % (35.0-51.0) 07/27/18 04:10 MCV 91.9 fl (80.0-94.0) 07/27/18 04:10 MCH 31.0 pg (27.0-31.0) 07/27/18 04:10 MCHC 33.8 g/dL (33.0-37.0) 07/27/18 04:10 RDW 13.3 % (11.5-14.5) 07/27/18 04:10 Plt Count 160 K/uL (130-400) 07/27/18 04:10 MPV 9.1 fl (7.2-11.7) 07/27/18 04:10 Neut % (Auto) 38.8 % (50.0-75.0) L 07/27/18 04:10 Lymph % (Auto) 44.1 % (20.0-40.0) H 07/27/18 04:10 [place] % (Auto) 12.7 % (0.0-10.0) H 07/27/18 04:10 Eos % (Auto) 3.7 % (0.0-4.0) 07/27/18 04:10 Baso % (Auto) 0.7 % (0.0-2.0) 07/27/18 04:10 Neut # (Auto) 1.5 K/uL (1.8-7.0) L 07/27/18 04:10 Lymph # (Auto) 1.7 K/uL (1.0-4.3) 07/27/18 04:10 [place] # (Auto) 0.5 K/uL (0.0-0.8) 07/27/18 04:10 Eos # (Auto) 0.1 K/uL (0.0-0.7) 07/27/18 04:10 Baso # (Auto) 0.0 K/uL (0.0-0.2) 07/27/18 04:10 PT 11.1 Seconds (9.8-13.1) 07/25/18 05:17 INR 1.0 07/25/18 05:17 APTT 28.5 Seconds (25.6-37.1) 07/25/18 05:17 pO2 21 mm/Hg (30-55) L 07/24/18 21:25 VBG pH 7.26 (7.32-7.43) L 07/24/18 21:25 VBG pCO2 48 mmHg (40-60) 07/24/18 21:25 VBG HCO3 18.5 mmol/L 07/24/18 21:25 VBG Total CO2 23.0 mmol/L (22-28) 07/24/18 21:25 VBG O2 Sat (Calc) 41.7 % (40-65) 07/24/18 21:25 VBG Base Excess -5.7 mmol/L (0.0-2.0) L 07/24/18 21:25 VBG Potassium 3.5 mmol/L (3.6-5.2) L 07/24/18 21:25 Sodium 139.0 mmol/L (132-148) 07/24/18 21:25 Chloride 100.0 mmol/L (98-107) 07/24/18 21:25 Glucose 240 mg/dL (75-110) H 07/24/18 21:25 Lactate 7.9 mmol/L (0.7-2.1) H* 07/24/18 21:25 FiO2 21.0 % 07/24/18 21:25 Blood Gas Comments Lac=7.9 07/24/18 21:25 Crit Value Called To dana Alonzo 07/24/18 21:25 Crit Value Called By 22 07/24/18 21:25 Crit Value Read Back Y 07/24/18 21:25 Blood Gas Notified Time 213007/24/18 21:25 Sodium 138 mmol/l (132-148) 07/27/18 04:10 Potassium 4.0 MMOL/L (3.6-5.0) 07/27/18 04:10 Chloride 101 mmol/L (98-107) 07/27/18 04:10 Carbon Dioxide 28 mmol/L (22-30) 07/27/18 04:10 Anion Gap 13 (10-20) 07/27/18 04:10 BUN 15 mg/dl (9-20) 07/27/18 04:10 Creatinine 0.8 mg/dl (0.8-1.5) 07/27/18 04:10 Est GFR ( Amer) > 60 07/27/18 04:10 Est GFR (Non-Af Amer) > 60 07/27/18 04:10 POC Glucose (mg/dL) 104 mg/dL (65-110) 07/27/18 10:42 Random Glucose 102 mg/dL (75-110) 07/27/18 04:10 Insulin Level 11.7 uIU/mL (2.0-19.6) 07/25/18 19:52 C-Peptide 2.89 ng/mL (0.80-3.85) 07/25/18 19:52 Lactic Acid 0.8 MMOL/L (0.7-2.1) 07/25/18 05:17 Calcium 9.9 mg/dL (8.4-10.2) 07/27/18 04:10 Phosphorus 4.7 mg/dl (2.5-4.5) H 07/24/18 19:00 Magnesium 1.9 MG/DL (1.6-2.3) 07/24/18 19:00 Total Bilirubin 0.3 mg/dl (0.2-1.3) 07/25/18 05:17 AST 94 U/L (17-59) H 07/25/18 05:17 ALT 61 U/L (21-72) 07/25/18 05:17 Alkaline Phosphatase 41 U/L (38-126) 07/25/18 05:17 Troponin I < 0.0120 ng/mL (0.00-0.120) 07/24/18 19:00 Total Protein 6.5 G/DL (6.3-8.2) 07/25/18 05:17 Albumin 3.3 g/dL (3.5-5.0) L D 07/25/18 05:17 Globulin 3.2 gm/dL (2.2-3.9) 07/25/18 05:17 Albumin/Globulin Ratio 1.0 (1.0-2.1) 07/25/18 05:17 Venous Blood Potassium 3.5 mmol/L (3.6-5.2) L 07/24/18 21:25 Urine Opiates Screen Negative (NEGATIVE) 07/24/18 23:09 Urine Methadone Screen Negative (NEGATIVE) 07/24/18 23:09 Ur Barbiturates Screen Negative (NEGATIVE) 07/24/18 23:09 Ur Phencyclidine Scrn Negative (NEGATIVE) 07/24/18 23:09 Ur Amphetamines Screen Negative (NEGATIVE) 07/24/18 23:09 U Benzodiazepines Scrn Negative (NEGATIVE) 07/24/18 23:09 U Oth Cocaine Metabols Negative (NEGATIVE) 07/24/18 23:09 U Cannabinoids Screen Positive (NEGATIVE) H 07/24/18 23:09 Alcohol, Quantitative 183 mg/dl (0-10) H 07/24/18 19:00 Ur L.pneumophila Ag Negative (NEGATIVE) 07/24/18 23:55 Mycoplasma pneumon IgG 1.71 (<=0.90) H 07/24/18 05:17 Ur Strep pneumoniae Ag Not detected (Not Detected) 07/25/18 01:00 Attending/Attestation - Attestation I have personally seen and examined this patient.: Yes I have fully participated in the care of the patient.: Yes I have reviewed all pertinent clinical information, including history, physical exam and plan: Yes Notes (Text): Diagnoses: Lactic Acidosis due to Alcohol Alcohol Intoxication Sepsis due to Pneumonia ruled out Acute Bronchitis
[2018-07-27 12:39] LABS: C-PEPTIDE 2.89 ng/mL (0.80-3.85)
--- NOTE | 2018-07-27 15:48 | PQF ---
PROVIDER RESPONSE TEXT: Pneumonia ruled out , Cough due to Acute Bronchitis Sepsis ruled out Lactic Acidosis due to Alcohol REVIEWER QUERY TEXT: Pneumonia Specificity Pneumonia CAP versus Aspiration is documented in the Medical Record. Please specify the type of pneum onia and the causative organism (includes probable or suspected) After workup Such as: Type: -- Aspiration pneumonia (please also specify the aspirate) -- Bacterial (please document suspected or probable organism) -- Bronchopneumonia (please document suspected or probable organism) -- Interstitial pneumonia -- Organizing pneumonia / BOOP -- Viral -- Other, please specify The patient's Clinical Indicators include: PN 07/26/18 attending:? Sepsis due to Pneumonia Sputum CS preliminary Gram negative rods Ur L. Pneumophila Ag negative CXR Mild bibasilar atelectasis Rx: IVAB Query created by: Breana Heaton on 07/27/2018 2:21 PM Electronically signed by: Radha Gonzales MD 07/27/2018 3:44 PM
== END 2018-07-27 13:20 | disposition home or self-care (01) | DRG 96 ==
LOC: H.ER 18:40 → H.ERHOLD 22:00 → H.TEL 07-25 05:11
PROVIDERS: ADMIT Internal Medicine; ATTEND Internal Medicine
DX: J20.9 Acute bronchitis, unspecified (principal); E87.2 Acidosis; F10.239 Alcohol dependence with withdrawal, unspecified; F20.9 Schizophrenia, unspecified; F10.229 Alcohol dependence with intoxication, unspecified; Y90.6 Blood alcohol level of 120-199 mg/100 ml; E16.1 Other hypoglycemia; I10 Essential (primary) hypertension; K29.70 Gastritis, unspecified, without bleeding; F17.210 Nicotine dependence, cigarettes, uncomplicated; Z86.19 Personal history of other infectious and parasitic diseases; Z88.0 Allergy status to penicillin